=== PATIENT | male | born 1995 | race Caucasian/White ===

== ENCOUNTER 2021-07-07 22:51 | Emergency (ER) | payer OTHER ==
[~2021-07-07 22:51] MED LIST: NAPROXEN500 MG PO
[2021-07-08] MEDS ORDERED: NORCO 5-325 TA1 EACH PO (00:12)
== END 2021-07-08 00:20 | disposition home or self-care (01) ==
LOC: FER 22:51
DX: S61.011A Laceration without foreign body of right thumb without damage to nail, initial encounter (principal); Z23 Encounter for immunization; W26.8XXA Contact with other sharp object(s), not elsewhere classified, initial encounter; Y92.009 Unspecified place in unspecified non-institutional (private) residence as the place of occurrence of the external cause
CPT/HCPCS: 90471; 90714